=== PATIENT | male | born 1990 | race Two or more races ===

== ENCOUNTER 2023-02-11 03:34 | Emergency (ER) | payer SELFPAY ==
[2023-02-11] MEDS ORDERED: Cephalexin 500 MG Cap PO ONE (03:43)
[2023-02-11] MEDS ORDERED: Acetaminophen/HYDROcodone 325-5 MG Tab PO ONE (03:43)
== END 2023-02-11 04:08 | disposition home or self-care (01) ==
LOC: JD.ED 03:34
DX: K02.9 Dental caries, unspecified (principal)
CPT/HCPCS: 99283; A9270